=== PATIENT | female | born 1980 | race Caucasian/White ===

== ENCOUNTER 2021-08-21 01:00 | Emergency (ER) | payer SELFPAY ==
[2021-08-21] MEDS ORDERED: diphenhydrAMINE 50 MG CAP ONE (03:14)
[2021-08-21] MEDS ORDERED: Famotidine 20 MG TAB ONE (03:14)
[2021-08-21] MEDS ORDERED: predniSONE 20 MG TAB ONE (03:14)
== END 2021-08-21 03:22 | disposition home or self-care (01) ==
LOC: ERS 01:00
DX: L29.9 Pruritus, unspecified (principal)
CPT/HCPCS: 99283; J7512

== ENCOUNTER 2021-08-29 05:33 | Emergency (ER) ==
[2021-08-29] MEDS ORDERED: diphenhydrAMINE 25 MG CAP ONE (08:00)
== END 2021-08-29 08:10 | disposition home or self-care (01) ==
LOC: ERS 05:33
DX: L50.9 Urticaria, unspecified (principal); Z76.0 Encounter for issue of repeat prescription
CPT/HCPCS: 99282

== ENCOUNTER 2021-08-30 06:08 | Emergency (ER) | payer SELFPAY | END 2021-08-30 08:42 | disposition home or self-care (01) | LOC: ERS 06:08 | DX: L50.9 Urticaria, unspecified (principal) | CPT/HCPCS: 99282 ==

== ENCOUNTER 2021-08-31 01:53 | Emergency (ER) | payer SELFPAY ==
[2021-08-31] MEDS ORDERED: hydrOXYzine 25 MG TAB ONE (02:18)
== END 2021-08-31 02:51 | disposition home or self-care (01) ==
LOC: ERS 01:53
DX: L29.9 Pruritus, unspecified (principal)
CPT/HCPCS: 99282